=== PATIENT | male | born 1965 | race Caucasian/White ===

== ENCOUNTER 2022-09-28 13:44 | Emergency (ER) | payer OTHER, SELFPAY ==
[2022-09-28 14:18] VITALS: BP 156/86; PULSE 85; RESP 18; TEMP 36.6; O2SAT 97; BMI 51.5
--- NOTE | 2022-09-28 14:42 | XRR_ITS ---
PROCEDURE INFORMATION: Exam: XR Right Hip Exam date and time: 09/28/2022 2:54 PM Age: 57 years old Clinical indication: Injury or trauma; Fall; Blunt trauma (contusions or hematomas); Right; Prior surgery; Surgery type: RT hip; Additional info: Fall pain TECHNIQUE: Imaging protocol: Radiologic exam of the right hip. Views: 1 view hip with pelvis when performed. COMPARISON: No relevant prior studies available. FINDINGS: Bones/joints: There is a bipolar right hip prosthesis that is unremarkable in position and alignment. Hardware is intact. There is no periprosthetic fracture. Bone metal interface is unremarkable. Remainder of the visualized osseous structures are intact. Soft tissues: Unremarkable. Other findings: FINDING XR/XR hip RT 2-3V wo/w pel* [id number] IMPRESSION: Bipolar right hip prosthesis in satisfactory position right hip joint. No acute abnormalities.
--- NOTE | 2022-09-28 14:47 | W.ED.EXTPRO ---
HPI - Extremity Problem General: Chief complaint: Extremity Injury, Lower Stated complaint: Right leg pain sent by Time Seen by Provider: 09/28/22 14:37 Source: patient Mode of arrival: ambulatory History of Present Illness: 57-year-old male who presents to the emergency room with complaint of right lateral hip pain. He fell about 6 to 7 weeks ago. He has been ambulating on it since. He has previously had a right hip arthroplasty with a revision. Postop he had DVTs and PEs. Patient is super morbidly obese. He is complaining of more discomfort to the lateral upper thigh the last few days. 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 MD Complaint: extremity pain Pain Consistency: constant Location: right and lower extremity Exacerbating factors: palpation Associated symptoms: Reports arthralgias and myalgias; Deny chest pain, fever(s), rash or short of breath Review of Systems Const: Denies: fever(s) or chills Card: Denies: chest pain Resp: Denies: dyspnea, productive cough or non-productive cough GI: Denies: abdominal pain, nausea or vomiting Skin/Breast: Denies: rash PFSH ED PFSH: Medical History (Updated 09/28/22 @ 15:22 by Gen Bentley DO) Chronic anticoagulation DVT (deep venous thrombosis) Obesity Pulmonary embolism Surgical History (Updated 09/28/22 @ 15:22 by Gen Bentley DO) History of total right hip arthroplasty Physical Exam Const: COMMON NORMALS: no acute distress GENERAL APPEARANCE: cooperative and comfortable ORIENTATION/CONSCIOUSNESS: Yes awake, Yes oriented to person, Yes oriented to place and Yes oriented to time HENMT: COMMON NORMALS: normocephalic, atraumatic and hearing grossly normal bilaterally HEAD & SCALP: normocephalic and atraumatic Resp: COMMON NORMALS: normal respiratory effort, No retractions, No use of accessory muscles and clear to auscultation bilaterally AUSCULTATION: clear to auscultation bilaterally Cardio: COMMON NORMALS: regular rate, regular rhythm and No murmurs present (Cardio) RATE: regular rate RHYTHM: regular rhythm Extremity: OTHER: Examination of the right thigh. There is no fluctuant areas there is no redness no erythema no induration. There is no pain in the medial aspect of the thigh or in the calf. There is prominent varicosities all none none of them are exquisitely tender inflamed or enlarged superficially. Neuro: SENSORIUM/ORIENTATION: Yes oriented to person, Yes oriented to place and Yes oriented to time Skin: COMMON NORMALS: no rashes or lesions noted GENERAL SKIN EXAM: no rashes or lesions noted Course Vital Signs: Vital signs: Vital Signs Temperature 97.9 F 09/28/22 14:18 Pulse Rate 85 09/28/22 14:18 Respiratory Rate 18 09/28/22 14:18 Blood Pressure 156/86 09/28/22 14:18 Pulse Oximetry 97 09/28/22 14:18 Oxygen Delivery Me thod 09/28/22 14:18 MDM - Extremity (Nontraumatic) Medical Decision Making Patient is adequately oral anticoagulated and is chronically on treatment. He did this several weeks ago we will go ahead and x-ray to make sure there is no occult injury to the area of the arthroplasty. X-ray unremarkable for fracture Scholls old hip arthroplasty in good position There is no physical exam findings suggestive of a fluid collection such as a cyst serous fluid pocket or hematoma that might have accumulated at the time that he fell. He has been ambulating so fracture seems quite unlike, and is not seen on x-ray.. Its not in the area of any deep vein structures and he is adequately anticoagulated. Ultrasound would not be particularly helpful clinically does not have any evidence of superficial venous thrombophlebitis even if he were at this point he is fully anticoagulated and I would not recommend adding any anti-inflammatories as that would exacerbate his INR. He can apply moist heat or ice as needed for comfort. There is a faint line along the greater trochanter there might have been a remote fracture there but it certainly does not like there is anything that is very recent by any means. Another possibility would be a lateral femoral cutaneous nerve syndrome further imaging at the bedside or advanced imaging would not really be helpful for that as it is not emergent condition and then the imaging that we do do in the emergency room would shed any light on that process. Final possibility would be a nerve root compression such as at the L4-5 level although his presentation at this time does not particularly seem like a radicular neuropathy. However if his symptoms persisted he may need further advanced imaging on an outpatient basis for work-up of this. Medical Records I reviewed the patient's medical records. Lab Data I reviewed the patient's lab results. Discharge Plan Discharge Patient Disposition: Home Clinical Impression: Acute leg pain, History of total right hip arthroplasty, Chronic anticoagulation Condition: Stable Prescriptions: No Action lisinopril 20 mg tablet 20 mg PO DAILY warfarin 10 mg tablet 10 mg PO DAILY Rx Instructions: 5 days weekly warfarin 5 mg tablet 5 mg PO DAILY Rx Instructions: 2 days weekly levothyroxine 100 mcg capsule 100 mcg PO DAILY nifedipine 30 mg tablet extended release 30 mg PO BID hydrochlorothiazide 25 mg tablet 25 mg PO DAILY hydroxychloroquine 200 mg tablet 200 mg PO BID omega-3 fatty acids 1,000 mg capsule 1,000 mg PO .four aspirin [Adult Aspirin Regimen] 81 mg tablet,delayed release (DR/EC) 81 mg PO DAILY Discharge Orders: Discharge ED (Routine); Ordered 09/28/22 Ordered By: Gen Bentley Referrals: Zoey Chen APN [Primary Care Provider] - Patient Instructions: Opioid Safety, Pain Management Coding Level of Care Code ED Instructor Creeler for Laurie Gustafson
== END 2022-09-28 15:55 | disposition home or self-care (01) ==
PROVIDERS: Emergency Provider Family Medicine; PCP Nurse Practitioner Family
DX: M25.551 Pain in right hip (principal); E66.01 Morbid (severe) obesity due to excess calories; Z68.43 Body mass index [BMI] 50.0-59.9, adult; Z79.01 Long term (current) use of anticoagulants; Z79.82 Long term (current) use of aspirin; Z86.711 Personal history of pulmonary embolism; Z86.718 Personal history of other venous thrombosis and embolism; Z96.641 Presence of right artificial hip joint
CPT/HCPCS: 73502; 99283